=== PATIENT | male | born 1995 | race Caucasian/White ===

== ENCOUNTER 2022-03-04 06:05 | Emergency (ER) | payer MEDICAID, OTHER ==
[~2022-03-04] VITALS: Ht 175.3 cm; Wt 107.3 kg
[2022-03-04] MEDS ORDERED: OFLO5DRO4 LEFT EAR (07:53)
[2022-03-04 08:23] VITALS: BP 127/86
== END 2022-03-04 08:26 | disposition home or self-care (01) ==
LOC: ER 06:05
DX: H92.02 Otalgia, left ear (principal); H60.502 Unspecified acute noninfective otitis externa, left ear
CPT/HCPCS: 99283

== ENCOUNTER 2022-04-04 20:45 | Emergency (ER) | payer MEDICAID ==
[~2022-04-04] VITALS: Ht 175.3 cm; Wt 110.0 kg
[~2022-04-04 20:45] MED LIST: OFLO5DRO4 LEFT EAR
[2022-04-04] MEDS ORDERED: LIDOCAINE 5% PATCH TOP SCH (21:45)
[2022-04-04] MEDS ORDERED: TETANUS, DIPHTHERIA, PERTUSSIS VAC/PF 0.5ML (>10YR OLD) IM ONE (21:45)
[2022-04-04] MEDS ORDERED: ACETAMINOPHEN 325MG TABLET PO ONE (21:45)
[2022-04-04] MEDS ORDERED: BACITRACIN 15GM TUBE TOP ONE (23:00)
[2022-04-04] MEDS ORDERED: BACL-141 MT (23:28)
[2022-04-04] MEDS ORDERED: ACET-2708 MT (23:28)
[2022-04-04] MEDS ORDERED: LIDO700A15 TP (23:28)
[2022-04-04 23:40] VITALS: BP 130/69
== END 2022-04-04 23:50 | disposition home or self-care (01) ==
LOC: ER 20:45
DX: S63.681A Other sprain of right thumb, initial encounter (principal); S80.02XA Contusion of left knee, initial encounter; S93.492A Sprain of other ligament of left ankle, initial encounter; S81.802A Unspecified open wound, left lower leg, initial encounter; I10 Essential (primary) hypertension; V23.4XXA Motorcycle driver injured in collision with car, pick-up truck or van in traffic accident, initial encounter; Y93.89 Activity, other specified; Y92.488 Other paved roadways as the place of occurrence of the external cause
CPT/HCPCS: 29125; 29505; 71250; 73130; 73562; 73610; 90471; 90715; 99284